=== PATIENT | female | born 1975 | race African-American/Black ===

== ENCOUNTER 2020-08-19 19:13 | Emergency (ER) | payer OTHER ==
[~2020-08-19] VITALS: Ht 165.1 cm; Wt 80.7 kg
[2020-08-19 19:20] VITALS: BP 137/85
--- NOTE | 2020-08-19 19:23 | NUR ---
TO LOBBY A/W BED AMBULATORY
[2020-08-19] MEDS ORDERED: ACETAMINOPHEN EXTRA STRENGTH 500 MG TAB PO ONE (19:25)
--- NOTE | 2020-08-19 19:25 | NUR ---
SEEN AND EXAMINED BY [facility] WITH ORDERS AND CARRIED OUT
--- NOTE | 2020-08-19 19:30 | NUR ---
MEDICATED PER [facility] ORDER, TOLERATED WELL.
--- NOTE | 2020-08-19 19:53 | NUR ---
PT RETURN FROM [facility] TO [facility]
--- NOTE | 2020-08-19 20:38 | NUR ---
PTS LEFT ANKEL WAS PLACED ON A ANKEL STIRRUP. PTS PMSC WNL. PT WAS ALSO GIVEN CRUTCHES. PT SHOWED GOOD USE OF CRUTCHES.
--- NOTE | 2020-08-19 20:40 | NUR ---
RESULT BACK AND NOTED BY [facility] AND FOR D/C
[2020-08-19 20:51] VITALS: BP 137/85
== END 2020-08-19 20:51 | disposition home or self-care (01) ==
LOC: MED 19:13
DX: S93.402A Sprain of unspecified ligament of left ankle, initial encounter (principal); Z98.890 Other specified postprocedural states; X58.XXXA Exposure to other specified factors, initial encounter; Y93.89 Activity, other specified; Y92.89 Other specified places as the place of occurrence of the external cause; Y99.8 Other external cause status
CPT/HCPCS: 29515; 73610; 99283